=== PATIENT | male | born 1960 | race African-American/Black ===

== ENCOUNTER 2017-10-27 21:06 | Emergency (ER) | payer MEDICAID ==
[~2017-10-27] VITALS: Ht 182.9 cm; Wt 79.4 kg
[2017-10-27 21:09] VITALS: BP 139/81
[2017-10-27 23:00] VITALS: BP 135/78
== END 2017-10-27 23:00 | disposition home or self-care (01) ==
LOC: MED 21:06
DX: B02.9 Zoster without complications (principal); F17.210 Nicotine dependence, cigarettes, uncomplicated; Z76.0 Encounter for issue of repeat prescription; Z88.8 Allergy status to other drugs, medicaments and biological substances
CPT/HCPCS: 99283

== ENCOUNTER 2017-11-17 21:25 | Emergency (ER) | payer MEDICAID ==
[~2017-11-17] VITALS: Ht 182.9 cm; Wt 79.4 kg
[2017-11-17 21:41] VITALS: BP 139/60
[2017-11-18] VITALS: BP 133/60
== END 2017-11-17 22:41 | disposition home or self-care (01) ==
LOC: MED 21:25
DX: M54.2 Cervicalgia (principal); Z76.5 Malingerer [conscious simulation]; Z59.0 Homelessness; Z88.8 Allergy status to other drugs, medicaments and biological substances
CPT/HCPCS: 72125; 99284